=== PATIENT | male | born 1995 | race Caucasian/White ===

== ENCOUNTER 2023-12-24 18:51 | Emergency (ER) | payer OTHER ==
[~2023-12-24] VITALS: Ht 177.8 cm; Wt 93.4 kg
[2023-12-24 18:55] VITALS: PULSE 98; RESP 18; TEMP 99.5
[2023-12-24 21:08] VITALS: BP 114/84; PULSE 98; RESP 18; TEMP 99.5; O2SAT 98
== END 2023-12-24 19:45 | disposition home or self-care (01) ==
LOC: FSED 19:01
DX: R50.9 Fever, unspecified (principal); J36 Peritonsillar abscess
CPT/HCPCS: 83518; 99283